=== PATIENT | female | born 1990 | race African-American/Black ===

== ENCOUNTER 2018-09-04 18:40 | Emergency (ER) | payer SELFPAY ==
--- NOTE | 2018-09-04 19:10 | NUR ---
Pt called for triage. Not in waiting room or outside of ER.
--- NOTE | 2018-09-04 19:30 | NUR ---
Patient left without being triaged and seen. No further treatment given. ER MD made aware
--- NOTE | 2018-09-04 19:30 | NUR ---
Pt called a second time. Not in ER waiting room or outside.
== END 2018-09-04 19:30 | disposition left against medical advice (07) ==
LOC: SED 18:40
DX: R05 Cough (principal); Z53.21 Procedure and treatment not carried out due to patient leaving prior to being seen by health care provider